=== PATIENT | male | born 1990 | race Caucasian/White ===

== ENCOUNTER 2017-08-09 17:49 | Emergency (ER) | payer BC ==
[~2017-08-09] VITALS: Ht 180.3 cm; Wt 90.4 kg
[~2017-08-09 17:49] MED LIST: ALPRAZOLAM0.25 M2 PO; CELEXA40 MG PO; XANAX0.25 MG PO
[2017-08-09 17:58] VITALS: BP 131/90
== END 2017-08-09 19:53 | disposition home or self-care (01) ==
LOC: EME 17:49
PROC: 0CQ4XZZ Repair Buccal Mucosa, External Approach (ICD-10-PCS; principal; 2017-08-09)
DX: S01.512A Laceration without foreign body of oral cavity, initial encounter (principal); W23.1XXA Caught, crushed, jammed, or pinched between stationary objects, initial encounter; F17.200 Nicotine dependence, unspecified, uncomplicated; F41.9 Anxiety disorder, unspecified; Z88.1 Allergy status to other antibiotic agents
CPT/HCPCS: 99281; 99284